=== PATIENT | male | born 1940 | race Caucasian/White ===

== ENCOUNTER 2019-07-27 06:13 | Inpatient (IN) | payer MEDICARE, OTHER ==
[~2019-07-27] VITALS: Ht 170.2 cm; Wt 57.6 kg
[2019-07-27 07:46] LABS: Basophils # (auto) 0 10 ^3/uL (0-0.2); Basophils % (auto) 0.7 % (0.0-2.0); Eosinophils # (auto) 0.3 10 ^3/uL (0-0.8); Eosinophils % (auto) 4.8 % (0.0-7.0); Hematocrit 27.7 % (41.0-53.0); Hemoglobin 8.8 g/dL (13.5-17.5); Lymphocytes # (auto) 0.3 10 ^3/uL (0.4-5.4); Lymphocytes % (auto) 5.1 % (10.0-50.0); Mean Corpuscular Hemoglobin 29.7 pg (28.0-32.0); Mean Corpuscular Hgb Conc. 31.8 g/dL (32.0-36.0); Mean Corpuscular Volume 93.5 fL (80.0-100.0); Monocytes # (auto) 0.5 10 ^3/uL (0-1.3); Monocytes % (auto) 6.9 % (0.0-12.0); Neutrophils # (auto) 5.5 10 ^3/uL (1.6-8.6); Neutrophils % (auto) 82.5 % (37.0-80.0); Nucleated Red Blood Cells % 0.1 %; Platelet Count (auto) 184 10^3/uL (140-450); Red Blood Cells 2.97 10^6/uL (4.5-5.90); Red Cell Distribution Width 13.5 % (11.8-14.3); White Blood Cell 6.7 10^3/uL (4.4-10.8)
[2019-07-27] MEDS ORDERED: AZITHROMYCIN 500MG/ 250ML 250 ML IV ONE (08:00)
[2019-07-27] MEDS ORDERED: cefTRIAXone 1GM/50ML D5W 50 ML IV ONE (08:00)
[2019-07-27 08:02] LABS: Albumin 2.9 g/dL (3.4-5.0); Anion Gap 6 (5-15); Blood Urea Nitrogen 55 mg/dL (7-18); Calcium 8.7 mg/dL (8.5-10.1); Carbon Dioxide 24 mmol/L (21-32); Chloride 111 mmol/L (98-107); Glucose 103 mg/dL (74-106); Potassium 5.2 mmol/L (3.5-5.1); Sodium 141 mmol/L (136-145)
[2019-07-27 08:07] LABS: Alanine Aminotransferase 15 U/L (16-61); Alkaline Phosphatase 63 U/L (45-117); Aspartate Aminotransferase 18 U/L (15-37); BUN/Creatinine Ratio 22.9; Bilirubin, Total 0.4 mg/dL (0.2-1.0); GFR African American 34 mL/min; GFR Non-African American 28 mL/min; Total Protein 6.9 g/dL (6.4-8.2)
[2019-07-27 09:51] LABS: Urine WBC None Seen /hpf (0 - 3)
[2019-07-27 09:58] LABS: Urine Bacteria NONE SEEN /hpf (None Seen); Urine Blood Negative /uL (Negative); Urine Specific Gravity 1.009 (1.001-1.035)
[2019-07-27] MEDS ORDERED: MORPHINE SULF INJ 2 MG/ML SYRINGE 1ML IV PRN (11:00)
[2019-07-27] MEDS ORDERED: NITROGLYCERIN 0.4 MG SL TAB SL PRN (11:00)
[2019-07-27] MEDS ORDERED: ONDANSETRON HCL 4 MG/2 ML VIAL IV PRN (11:15)
[2019-07-27] MEDS ORDERED: LACTULOSE 20Gm/30ML SOLN PO PRN (11:15)
[2019-07-27] MEDS ORDERED: ALBUTEROL SULF 2.5 MG/0.5ML(0.5%) NEB SOLN NEB PRN (11:15)
[2019-07-27] MEDS ORDERED: ASPirin 81 mg TAB PO ONE (11:15)
[2019-07-27] MEDS ORDERED: ACETAMINOPHEN 500 MG TAB PO PRN (11:15)
[2019-07-27] MEDS: traMADol HCL 50 MG TAB PO PRN (11:58)
[2019-07-27 12:00] VITALS: BP 145/88
[2019-07-27] MEDS: ALBUTEROL SULF 2.5 MG/0.5ML(0.5%) NEB SOLN NEB SCH ×2 (12:01→19:42)
[2019-07-27] MEDS: IPRATROPIUM BROM 0.5 MG/2.5ML INH SOL NEB SCH ×2 (12:01→19:42)
--- NOTE | 2019-07-27 12:30 | NUR ---
Telemetry admit from ER HYDEJAYLEEN admitted to Telemetry unit after SBAR received. Patient oriented to SOPHY MCMILLAN, primary RN, unit, room, bed, and unit policies regarding patient care and visiting hours. Patient now on continuous telemetry monitoring, tele box # [id number] and telemetry reading on arrival to unit is . Patient placed on bedside oxygen, weighed by bed scale and encouraged to call if they need something. All questions and concerns addressed, patient verbalized understanding.
[2019-07-27 13:19] VITALS: BP 141/67
[2019-07-27] MEDS: SODIUM CHLORIDE 0.9% 1,000 ML IV SCH (14:12)
--- NOTE | 2019-07-27 16:15 | NUR ---
UA C/S sent to lab.
[2019-07-27 16:45] VITALS: BP 139/72
--- NOTE | 2019-07-27 21:40 | NUR ---
PATIENT WAS YELLING FOR HELP. AFTER COMING TO TO SPEAK TO PATIENT HE SAID HE NEEDED HELP TO GET OUT OF HERE. I ASKED HIM DOES HE KNOW WHERE HE IS AND HE COULD NOT GIVE ME AN ANSWER. I REORIENTED HIM THAT HE IS HERE AT [facility] IN WHICH HE REPLIED NO I AM NOT. HE EVENTUALLY CALMED DOWN AND RESTED IN HIS BED. WILL CONTINUE TO MONITOR.
[2019-07-27 21:42] VITALS: BP 176/72
--- NOTE | 2019-07-28 00:12 | NUR ---
Respiratory note: MED NEB TX HELD PER RN REQUEST. PT PRESENTING NO RESPIRATORY DISTRESS AT THIS TIME.
[2019-07-28] MEDS: SODIUM CHLORIDE 0.9% 1,000 ML IV SCH ×2 (01:37→15:08)
[2019-07-28 05:30] LABS: Basophils # (auto) 0 10 ^3/uL (0-0.2); Eosinophils # (auto) 0.3 10 ^3/uL (0-0.8); Hemoglobin 7.8 g/dL (13.5-17.5); Mean Corpuscular Volume 91.6 fL (80.0-100.0); Monocytes # (auto) 0.4 10 ^3/uL (0-1.3)
[2019-07-28 05:35] LABS: Basophils % (auto) 0.8 % (0.0-2.0); Eosinophils % (auto) 6.6 % (0.0-7.0); Hematocrit 23.9 % (41.0-53.0); Lymphocytes # (auto) 0.4 10 ^3/uL (0.4-5.4); Lymphocytes % (auto) 8.9 % (10.0-50.0); Mean Corpuscular Hemoglobin 30.1 pg (28.0-32.0); Mean Corpuscular Hgb Conc. 32.9 g/dL (32.0-36.0); Monocytes % (auto) 9.3 % (0.0-12.0); Neutrophils % (auto) 74.4 % (37.0-80.0); Platelet Count (auto) 177 10^3/uL (140-450); Red Blood Cells 2.61 10^6/uL (4.5-5.90); Red Cell Distribution Width 12.9 % (11.8-14.3)
[2019-07-28 05:40] VITALS: BP 163/77
[2019-07-28 05:48] LABS: Calcium 8.7 mg/dL (8.5-10.1); Potassium 5.2 mmol/L (3.5-5.1)
[2019-07-28 05:55] LABS: Albumin 2.6 g/dL (3.4-5.0); BUN/Creatinine Ratio 22.7; Bilirubin, Total 0.4 mg/dL (0.2-1.0); Total Protein 6.2 g/dL (6.4-8.2)
[2019-07-28] MEDS: ALBUTEROL SULF 2.5 MG/0.5ML(0.5%) NEB SOLN NEB SCH ×4 (06:35→17:56)
[2019-07-28] MEDS: IPRATROPIUM BROM 0.5 MG/2.5ML INH SOL NEB SCH ×4 (06:35→17:56)
[2019-07-28 08:00] VITALS: BP 133/71
[2019-07-28] MEDS: cefTRIAXone 1GM/50ML D5W 50 ML IV SCH (09:14)
[2019-07-28] MEDS: ASPirin 81 mg TAB PO SCH ×2 (09:15→09:34)
[2019-07-28] MEDS: ENOXAPARIN SOD 30 MG/0.3 ML SYRINGE SC SCH ×2 (09:15→09:34)
--- NOTE | 2019-07-28 11:32 | NUR ---
WOUND CARE NOTE: Wound care in to see patient per wound care request regarding multiple wounds that are noted present on admission. Bedside nurse took photograph of patient's wounds upon admission for reference. Patient is 78 years old male with admitting diagnosis of Dehydration, Acute Kidney Injury. Patient is resting in bed in Rm. 294B. Patient is awake, alert and follow simple direction. He's able to assist in turning and repositioning and his Deniz score is 16. Patient is in no stated pain at this time. Skin/wound assessment done with the assistance of patient's nurse, KIANA Shepherd. Patient noted with multiple scabbed skin tear and ecchymosis to his face and periorbital area. Multi open full thickness skin tear noted to his Rt elbow (6x4cm), Rt forearm (3.5x2.5cm), Rt medial forearm ((4x1cm), L upper chest/near shoulder area (3x2cm). L index finger (0.5x2cm), Rt knee (1.5x2.5cm). Open full thickness skin tears has missing skin flap, red/purple ecchymotic periwound, minimal serosanguineous drainage, no odor noted. Partial thickness skin tears noted to patient's L knee (0.6x0.6cm) and Rt dorsal great toe (0.5x0.7cm). Open draining lesion noted on patient's Rt upper back measuring 3x4cm, patient reported history of cancer. Patient reported had a fall at home sustaining multiple full thickness skin tear, abrasions and ecchymosis. Cleansed multiple wounds with wound cleanser, patted dry with gauze, applied Thera honey gauze to multi open full thickness wounds, honey gel to partial thickness skin tears. Covered Rt forearm skin tears with Telfa (non-adherent dressing) wrapped with Kerlix, secured with tape, further secured with Stockinette. Covered Bilateral knee wounds, back and Lt upper shoulder wounds with Opti foam gentle dressing. Covered L index finger skin tear with Bandaid. No pressure injury injury noted. Applied Barrier cream to sacrum and preventative Opti foam sacral dressing. Patient tolerated well, repositioned for comfort. KIANA Shepherd at bedside. RECOMMENDATION: Nursing to continue with BID/PRN cleaning and application of Barrier cream to sacral buttocks as preventative, Q3Days/PRN dressing change multiple wounds/skin tear per MD order Dietary consult for wounds, frequent turning and repositioning schedule as condition permits,redistribute pressure points with pillows, elevate heels on pillows,continue monitoring by wound care while patient is hospitalized. Addendum: 07/28/19 at 1400 by Ladi Marcos RN Amended: Links added.
[2019-07-28 12:00] VITALS: BP 150/78
--- NOTE | 2019-07-28 14:44 | NUR ---
assessment re: jacoby consult for Living situation Patient is a 78 year old male who is confused. Prior to admission patient resided at a board and care on [facility] in [place]. Per Osmin at [facility] patient was on service with them and revoked on 04/10/19. I then received a fax from [facility] [phone] fax [phone]. I spoke with Jair. Per Jair patient was on service with them prior to admission since 07/11/2019 and revoked service once admitted to hospital. Both Osmin and Jair informed me patient has no family at all. I informed Jair to have his hospital social worker call me regarding this case. Waiting manager combination back now. Addendum: 07/28/19 at 1451 by Kelley CRUZ Amended: Links added.
--- NOTE | 2019-07-28 16:09 | NUR ---
re-assessment I received a call from Nelly professor of social work at [facility]. Per Nelly they will take patient back on service on discharge. Patient will go [place] [facility] [place] [address] [place] [phone]. If discharged over the weekend please call Nelly at [phone]. Addendum: 07/28/19 at 1612 by Kelley CRUZ Amended: Links added.
[2019-07-28 16:51] VITALS: BP 157/77
[2019-07-28 22:00] VITALS: BP 148/71
[2019-07-29] MEDS: IPRATROPIUM BROM 0.5 MG/2.5ML INH SOL NEB SCH ×4 (00:08→19:11)
[2019-07-29] MEDS: ALBUTEROL SULF 2.5 MG/0.5ML(0.5%) NEB SOLN NEB SCH ×4 (00:08→19:11)
[2019-07-29] MEDS: SODIUM CHLORIDE 0.9% 1,000 ML IV SCH ×2 (04:10→18:05)
[2019-07-29 04:58] VITALS: BP 156/76
--- NOTE | 2019-07-29 07:15 | NUR ---
OPENING SHIFT NOTE Assumed care, patient AOx4. Patient denies pain. Fall precautions in place. Patient updated on POC an to call for assistance as needed, patient verbalized understanding and demonstrated what button to push on the call light for help. Orr patent, draining clear yellow urine, secured below waistline. Will continue care.
[2019-07-29 09:24] VITALS: BP 154/82
--- NOTE | 2019-07-29 10:15 | NUR ---
DRESSING CHANGE Dressing change to the right forearm/elbow performed after bleeding noted to site. Per patient he bumped his arm on the side rail of the bed causing it to bleed. Wound irrigated with NS, covered with Thera Honey sheet, non adherent Telfa pad placed and secured with Kerlix gauze wrap. Patient verbalized pain throughout procedure, but tolerated well without complications.
[2019-07-29] MEDS: cefTRIAXone 1GM/50ML D5W 50 ML IV SCH (10:21)
[2019-07-29] MEDS: ENOXAPARIN SOD 30 MG/0.3 ML SYRINGE SC SCH (10:21)
[2019-07-29] MEDS: ASPirin 81 mg TAB PO SCH (10:22)
[2019-07-29] MEDS: traMADol HCL 50 MG TAB PO PRN ×2 (10:26→22:44)
--- NOTE | 2019-07-29 10:26 | NUR ---
Pain Patient complaining of generalized pain do to multiple abrasions s/p fall. Patient rates pain 3/10. Will medicate per doctors orders and reassess pain management in one hour.
--- NOTE | 2019-07-29 10:36 | NUR ---
RE: Pain Patient states he no longer has pain and is comfortable in bed. Will continue to monitor. Addendum: 07/29/19 at 1644 by FREDERICK GARCIA RN RN note time 11:20
--- NOTE | 2019-07-29 11:26 | NUR ---
RE: pain Patient sleeping, no s/s of pain noted at this moment. Will continue to monitor.
--- NOTE | 2019-07-29 12:15 | NUR ---
Pending D/C Spoke with patients Director Instrumentation Nelly bean doctors plan to D/C patient on 07/29/2019. Per Christal patient does not have a boarding care facility to stay in until Wednesday. Will Notify
[2019-07-29 12:53] VITALS: BP 130/72
--- NOTE | 2019-07-29 15:45 | NUR ---
Nutrition Assessment Notes Please refer to link for full assessment notes. Est Energy needs: 2884-6608 kcals (20-25 kcal/kgBW) d/t elev RFTs, low GFR Est Protein needs: 35-44 gms/day (0.6-0.75 gm/kgBW) d/t elev RFTs, low GFR Will continue to monitor and reassess prn. Addendum: 07/29/19 at [address] Amended: Links added.
[2019-07-29 16:36] VITALS: BP 148/80
--- NOTE | 2019-07-29 19:30 | NUR ---
Opening Shift Note Assumed care of patient. Patient is awake and alert. No S/S of distress/SOB or pain. Instructed on POC and to call for assist PRN, will continue to monitor for changes Q1hr and PRN. Bed locked in lowest position and bed rails up x2. Call light within reach.
[2019-07-29] MEDS: LABETALOL HCL 5 MG/ML ML 20ML VIAL IV PRN (22:45)
[2019-07-29 22:59] VITALS: BP 161/89
--- NOTE | 2019-07-29 23:19 | NUR ---
Patient pain level 10/10. PRN pain medication available indicated for pain level between 4-6. Explained to patient that Tramadol is available and patient stated that Tramadol worked good for him the previous time it was given. Patient requested PRN pain medication Tramadol.
--- NOTE | 2019-07-30 00:16 | NUR ---
Respiratory note: PT REFUSE MED NEB AT THIS TIME, PT NOTIFIED NEXT SCHEDULED MED NEB AT 0600
[2019-07-30] MEDS: LABETALOL HCL 5 MG/ML ML 20ML VIAL IV PRN (02:21)
[2019-07-30] MEDS: SODIUM CHLORIDE 0.9% 1,000 ML IV SCH ×2 (05:22→19:02)
[2019-07-30 05:46] VITALS: BP 157/72
[2019-07-30] MEDS: ALBUTEROL SULF 2.5 MG/0.5ML(0.5%) NEB SOLN NEB SCH ×4 (06:02→18:48)
[2019-07-30] MEDS: IPRATROPIUM BROM 0.5 MG/2.5ML INH SOL NEB SCH ×4 (06:02→18:48)
[2019-07-30 06:30] VITALS: BP 157/72
[2019-07-30 08:00] VITALS: BP 166/81
[2019-07-30] MEDS: ENOXAPARIN SOD 30 MG/0.3 ML SYRINGE SC SCH (08:29)
[2019-07-30] MEDS: ASPirin 81 mg TAB PO SCH (08:29)
[2019-07-30] MEDS: cefTRIAXone 1GM/50ML D5W 50 ML IV SCH (08:30)
--- NOTE | 2019-07-30 12:00 | NUR ---
RE: D/C Patient to be D/C on 07/31/2019. Spoke with Slitter Cut Off Operator from [facility], [facility] pickup has been set up for 0900. Patient to be transported via wheelchair. Physical Therapy Evaluation performed patient able to transfer from bed to wheelchair with minimal assistance.
[2019-07-30 13:00] VITALS: BP 136/77
[2019-07-30] MEDS: traMADol HCL 50 MG TAB PO PRN (15:03)
--- NOTE | 2019-07-30 15:03 | NUR ---
Pain Patient complaining of generalized pain do to multiple abrasions s/p fall. Patient rates pain 6/10. Will medicate per doctors orders and reassess pain management in one hour.
--- NOTE | 2019-07-30 16:03 | NUR ---
RE: pain Patient sleeping, no s/s of pain noted at this moment. Will continue to monitor.
[2019-07-30 17:00] VITALS: BP 166/75
--- NOTE | 2019-07-30 20:20 | NUR ---
open note assumed care of pt. upon entering room pt awake and alert. pt oriented to self and where he is. this nurse oriented him to the date and reason for visit. pt updated on plan of care. pt on room air no distress noted or expressed. pt has moctezuma in place, secured, below the waist and draining clear yellow. pt denies any pain. pt bed locked, low and 2x rails up. call light in reach. this nurse activated be alarm, encouraged pt to call as needed. pt agreed. this nurse to round q1hr and prn.
[2019-07-31 00:02] VITALS: BP 152/73
[2019-07-31] MEDS: ALBUTEROL SULF 2.5 MG/0.5ML(0.5%) NEB SOLN NEB SCH ×3 (00:27→11:30)
[2019-07-31] MEDS: IPRATROPIUM BROM 0.5 MG/2.5ML INH SOL NEB SCH ×3 (00:27→11:30)
[2019-07-31 05:23] VITALS: BP 147/87
--- NOTE | 2019-07-31 07:15 | NUR ---
Respiratory note: SCHEDULED MED NEB TX NOT GIVEN. PT REFUSED TX, NO DISTRESS NOTED. HR 63, RR 16, SPO2 97% ON ROOM AIR.
--- NOTE | 2019-07-31 07:30 | NUR ---
Opening Shift Note Assuming care of patient at this time. Patient is awake and alert. Patient denies pain. Patient shows no signs or symptoms of distress or shortness of breath. Bed is locked and lowered with side rails up x2. Instructed patient on the plan of care for today and to call for assistance as needed. Call light within reach. Will continue to round hourly and as needed.
[2019-07-31] MEDS: SODIUM CHLORIDE 0.9% 1,000 ML IV SCH (08:22)
[2019-07-31 08:41] VITALS: BP 147/87
[2019-07-31] MEDS: cefTRIAXone 1GM/50ML D5W 50 ML IV SCH (09:00)
[2019-07-31] MEDS: ENOXAPARIN SOD 30 MG/0.3 ML SYRINGE SC SCH (10:00)
[2019-07-31] MEDS: ASPirin 81 mg TAB PO SCH (10:00)
--- NOTE | 2019-07-31 10:01 | NUR ---
Wound Care/Photos Changed all patient's dressings and took wound photos of all patient's documented wounds. Patient tolerated well.
--- NOTE | 2019-07-31 10:07 | NUR ---
Dominga Spoke with Dr. Keagan Pagan at this time. Per Dr. Pagan, patient will go home with moctezuma catheter and will need to have it removed in one week. Notified patient and included in discharge instructions.
--- NOTE | 2019-07-31 10:17 | NUR ---
Transportation Transportation is on unit at this time to pick-up patient.
--- NOTE | 2019-07-31 10:30 | NUR ---
Discharge Discharge instructions given as ordered. Encourage to follow up with hospice MD as instructed. All questions and concerns addressed. Patient verbalized understanding. Medication reconciliation form completed and copy given to patient. Home medications held in Pharmacy returned to patient, and needed vaccines given. IV removed with catheter intact, pressure dressing applied, moctezuma catheter kept in per MD orders. Telemetry unit returned to ICU. Transport and this RN to assist patient into wheelchair. No distress noted at time of departure.
== END 2019-07-31 11:00 | disposition hospice, home (50) | DRG 542 ==
LOC: EDBD 06:13 → ER 06:13 → TELE 06:14 → TELE-WESTW 11:47
PROVIDERS: ADMIT Internal Medicine; ATTEND Family Medicine
DX: M48.54XA Collapsed vertebra, not elsewhere classified, thoracic region, initial encounter for fracture (principal); J69.0 Pneumonitis due to inhalation of food and vomit; N17.9 Acute kidney failure, unspecified; J98.11 Atelectasis; S01.81XA Laceration without foreign body of other part of head, initial encounter; S40.212A Abrasion of left shoulder, initial encounter; S51.011A Laceration without foreign body of right elbow, initial encounter; R62.7 Adult failure to thrive; D63.8 Anemia in other chronic diseases classified elsewhere; E86.0 Dehydration; E87.5 Hyperkalemia; H70.10 Chronic mastoiditis, unspecified ear; K57.90 Diverticulosis of intestine, part unspecified, without perforation or abscess without bleeding; Z96.653 Presence of artificial knee joint, bilateral; S80.212A Abrasion, left knee, initial encounter; S80.211A Abrasion, right knee, initial encounter; Z96.612 Presence of left artificial shoulder joint; C44.90 Unspecified malignant neoplasm of skin, unspecified; Z51.5 Encounter for palliative care; I10 Essential (primary) hypertension; W18.39XA Other fall on same level, initial encounter; Y93.89 Activity, other specified; Y92.89 Other specified places as the place of occurrence of the external cause; Y99.8 Other external cause status; Z86.011 Personal history of benign neoplasm of the brain; Z79.899 Other long term (current) drug therapy; Z68.20 Body mass index [BMI] 20.0-20.9, adult
CPT/HCPCS: 36415; 51702; 70450; 70486; 71045; 73030; 73080; 73562; 74176; 80053; 81001; 82550; 84484; 85025; 87086; 93005; 94640; 96365; 96367; 97163; G0378; J0696